=== PATIENT | female | born 1980 | race African-American/Black ===

== ENCOUNTER 2016-12-19 13:16 | Emergency (ER) | payer MEDICAID, OTHER ==
[~2016-12-19] VITALS: Ht 167.6 cm; Wt 63.5 kg
[2016-12-19 13:38] VITALS: BP 125/62
== END 2016-12-19 16:45 | disposition left against medical advice (07) ==
LOC: ER 13:16
DX: O26.891 Other specified pregnancy related conditions, first trimester (principal); Z53.21 Procedure and treatment not carried out due to patient leaving prior to being seen by health care provider